=== PATIENT | male | born 1960 ===

== ENCOUNTER 2020-07-12 14:06 | Inpatient (IN) | payer MEDICARE ==
[~2020-07-12] VITALS: Ht 170.2 cm; Wt 72.5 kg
[2020-07-12 14:25] LABS: Calcium, Ionized (POC) 1.16 mmol/L (1.10-1.46); Chloride (POC) 100 mmol/L (98-108); Glucose (ISTAT POC) 162 mg/dL (70-99); Hemoglobin (POC) 18.4 g/dL (13.5-17.5); Potassium (POC) 4.5 mmol/L (3.5-5.5); Sodium (POC) 134 mmol/L (135-148); Total CO2 (POC) 22 mmol/L (21-32)
[2020-07-12 14:29] LABS: Hematocrit 52.2 % (37.0-53.0); Hemoglobin 17.4 g/dL (13.5-17.5); Mean Corpuscular HGB 31.4 pg (26.0-34.0); Mean Corpuscular HGB Conc 33.3 g/dL (31.5-36.5); Mean Corpuscular Volume 94 fL (80-100); Mean Platelet Volume 10.5 fL (9.1-12.4); Platelet Count 281 K/mm3 (150-400); RDW Coefficient Variation 13.2 % (11.7-14.2); RDW Standard Deviation 45.2 fL (35.1-46.3); Red Blood Cell Count 5.54 M/mm3 (4.30-5.90); White Blood Cell Count 21.92 K/mm3 (4.00-11.30)
[2020-07-12 15:08] LABS: Alanine Aminotransfer (ALT/SGP 165 U/L (12-78); Albumin, Blood 3.2 g/dL (3.4-5.0); Albumin/Globulin Ratio 0.7 (0.8-1.8); Alk Phos 52 U/L (50-136); Anion Gap 11 mmol/L (6-16); Aspartate Aminotrans (AST/SGOT 902 U/L (12-37); Bilirubin, Total 1.3 mg/dL (0.1-1.0); Blood Urea Nitrogen 23 mg/dL (8-24); Bun/Creatinine Ratio 20.4 (12.0-20.0); CHOL/HDL RATIO 3.5; CO2, Blood 22 mmol/L (21-32); Calcium, Blood 9.3 mg/dL (8.5-10.1); Chloride, Blood 102 mmol/L (98-108); Cholesterol 179 mg/dL (50-200); Creatinine, Blood 1.13 mg/dL (0.60-1.20); Globulin, Blood 4.4 g/dL (2.2-4.0); Glomerular Filtration Rate >60 (60-); Glucose, Blood 151 mg/dL (70-99); HDL Cholesterol 51 mg/dL (>39); LDL/HDL RATIO 2.2; Low Density Lipoprotein Chol 111 mg/dL (0-110); Magnesium, Blood 1.8 mg/dL (1.6-2.4); Potassium, Blood 4.5 mmol/L (3.5-5.5); Sodium, Blood 135 mmol/L (136-145); Total Protein, Blood 7.6 g/dL (6.4-8.2); Triglycerides 84 mg/dL (30-160); Very Low Density Lipoprot Chol 16 mg/dL (6-32)
[2020-07-12 17:16] LABS: BASOPHILS ABSOLUTE AUTO 0.04 K/mm3 (0.00-0.23); BASOPHILS PERCENT AUTO 0 % (0-2); EOSINOPHILS PERCENT AUTO 0 % (0-6); Hematocrit 40.8 % (37.0-53.0); Hemoglobin 14.3 g/dL (13.5-17.5); IMMATURE GRAN ABSOLUTE AUTO 0.11 K/mm3 (0.00-0.10); IMMATURE GRAN PERCENT AUTO 1 % (0-1); LYMPHOCYTES ABSOLUTE AUTO 1.66 K/mm3 (0.84-5.20); LYMPHOCYTES PERCENT AUTO 8 % (21-46); MONOCYTES ABSOLUTE AUTO 2.03 K/mm3 (0.16-1.47); MONOCYTES PERCENT AUTO 10 % (4-13); Mean Corpuscular HGB 31.5 pg (26.0-34.0); Mean Corpuscular Volume 90 fL (80-100); Mean Platelet Volume 10.3 fL (9.1-12.4); NEUTROPHILS PERCENT AUTO 82 % (41-73); Platelet Count 223 K/mm3 (150-400); RDW Coefficient Variation 13.1 % (11.7-14.2); RDW Standard Deviation 42.9 fL (35.1-46.3); Red Blood Cell Count 4.54 M/mm3 (4.30-5.90); White Blood Cell Count 21.24 K/mm3 (4.00-11.30)
[2020-07-12 17:25] LABS: International Normalized Ratio 1.17; Prothrombin Time Results 12.4 Sec (9.7-11.5)
[2020-07-12 18:31] LABS: Alanine Aminotransfer (ALT/SGP 130 U/L (12-78); Albumin, Blood 2.4 g/dL (3.4-5.0); Albumin/Globulin Ratio 0.8 (0.8-1.8); Alk Phos 37 U/L (50-136); Anion Gap 7 mmol/L (6-16); Aspartate Aminotrans (AST/SGOT 828 U/L (12-37); Blood Urea Nitrogen 21 mg/dL (8-24); Bun/Creatinine Ratio 23.7 (12.0-20.0); CO2, Blood 20 mmol/L (21-32); Calcium, Blood 7.6 mg/dL (8.5-10.1); Chloride, Blood 106 mmol/L (98-108); Creatinine, Blood 0.89 mg/dL (0.60-1.20); Glomerular Filtration Rate >60 (60-); Glucose, Blood 126 mg/dL (70-99); Sodium, Blood 133 mmol/L (136-145); Total Protein, Blood 5.4 g/dL (6.4-8.2)
[2020-07-12 18:32] LABS: Troponin I >200.000 ng/mL (0.000-0.040)
--- NOTE | 2020-07-12 18:35 | NUR ---
ASSUMED CARE RECEIVED FROM LIBRARY HISTORIAN VIA BED. PT IS AWAKE AND ALERT. ORIENTED TO ALL EXCEPT TO TIME OF DAY, BUT REORIENTS EASILY. COOPERATIVE WITH CARE. IMPELLA IN PLACE TO LEFT GROIN. PA CATHETER AND ARTERIAL LINE IN PLACE TO RIGHT FEMORAL. BLE ARE WARM, PULSES INTACT. CMS INTACT. NC 6L WITH SATS 95%. OCCASIONAL MOIST COUGH NOTED. PT CONTINUES WITH COMPAINT OF MID-SUBSTERNAL CHEST PAIN WITH DEEP BREATHING AND COUGHING. DENIES SOB/DYSPNEA AT THE MOMENT. C/O MILD NAUSEA. DOBUTAMINE INFUSING AT 7.5MCG/KG/MIN AND MILRINONE INFUSING AT 0.125MCG/KG/MIN PER ORDER.
--- NOTE | 2020-07-12 19:35 | NUR ---
CARDIAC CALCS/CARLOS CARLOS PLACED AT THIS TIME WITH IMMEDIATE RETURN OF DARK YELLOW URINE. CARDIAC CALCULATIONS DONE.
[2020-07-12 19:41] LABS: Source, Urine Catheter
[2020-07-12 19:46] LABS: Appearance, Urine Clear (Clear); Bilirubin, Urine Neg (Neg); Blood, Urine 5+ (Neg); Color, Urine Amber (P-Yellow); Glucose Qualitative, Urine Neg (Neg); Ketones, Urine 1+ (Neg); Leukocyte Esterase, Urine 1+ (Neg); Nitrite, Urine Neg (Neg); Protein, Urine 2+ (Neg); Specific Gravity, Urine 1.015 (1.003-1.022); Urobilinogen, Urine NORM (Normal)
[2020-07-12 19:52] LABS: Bacteria Mod /hpf; Squamous Epithelial Cells Not Seen /hpf (Few); White Blood Cells, Urine 0-2 /hpf (0-5)
[2020-07-12 20:11] LABS: Influenza A, PCR NEGATIVE (NEGATIVE); Influenza B, PCR NEGATIVE (NEGATIVE); Resp Syncytial Virus, PCR NEGATIVE (NEGATIVE); SARS-Cov-2 (COVID-19) PCR, MMC NEGATIVE (NEGATIVE)
--- NOTE | 2020-07-12 20:55 | NUR ---
MD VISIT/ FLUID BOLUS DR. AVILES IN TO SEE PT. PLAN IS TO GIVE 500CC IV FLUID BOLUS AT THIS TIME. GOAL IS TO KEEP CVP AT 10.
--- NOTE | 2020-07-12 23:45 | NUR ---
PTT/PURGE SOLUTION PTT IS 41.0 AT THIS TIME. IMPELLA PURGE SOLUTION CHANGED TO D5W WITH HEPARIN 50UNITS/ML PER ORDER.
[2020-07-13] MEDS ORDERED: BENADRYL25 M1 PO (00:39)
[2020-07-13] MEDS ORDERED: IBUP200 (00:39)
--- NOTE | 2020-07-13 02:36 | NUR ---
PTT LAST PTT WAS 46.6 (GOAL 50-70). DISCUSSED WITH INOCENCIA BOOKER, AND WILL CONTINUE TO MONITOR AT THIS TIME.
--- NOTE | 2020-07-13 03:41 | NUR ---
URINE OUTPUT DR. AVILES NOTIFIED OF DECREASE IN URINE OUTPUT TO <30CC/HR.
[2020-07-13 03:53] LABS: BASOPHILS ABSOLUTE AUTO 0.04 K/mm3 (0.00-0.23); BASOPHILS PERCENT AUTO 0 % (0-2); Hematocrit 37.5 % (37.0-53.0); LYMPHOCYTES ABSOLUTE AUTO 2.15 K/mm3 (0.84-5.20); LYMPHOCYTES PERCENT AUTO 12 % (21-46); MONOCYTES ABSOLUTE AUTO 2.09 K/mm3 (0.16-1.47); MONOCYTES PERCENT AUTO 12 % (4-13); Mean Corpuscular HGB 31.1 pg (26.0-34.0); Mean Corpuscular HGB Conc 34.7 g/dL (31.5-36.5); Mean Corpuscular Volume 90 fL (80-100); Mean Platelet Volume 10.2 fL (9.1-12.4); Platelet Count 166 K/mm3 (150-400); RDW Coefficient Variation 13.1 % (11.7-14.2); RDW Standard Deviation 42.8 fL (35.1-46.3); Red Blood Cell Count 4.18 M/mm3 (4.30-5.90); White Blood Cell Count 17.69 K/mm3 (4.00-11.30)
[2020-07-13 03:54] LABS: EOSINOPHILS PERCENT AUTO 0 % (0-6); IMMATURE GRAN ABSOLUTE AUTO 0.09 K/mm3 (0.00-0.10); IMMATURE GRAN PERCENT AUTO 1 % (0-1); NEUTROPHILS ABSOLUTE AUTO 13.32 K/mm3 (1.96-9.15); NEUTROPHILS PERCENT AUTO 75 % (41-73)
[2020-07-13 04:06] LABS: Anion Gap 9 mmol/L (6-16); Blood Urea Nitrogen 24 mg/dL (8-24); Bun/Creatinine Ratio 24.3 (12.0-20.0); CO2, Blood 18 mmol/L (21-32); Calcium, Blood 7.8 mg/dL (8.5-10.1); Chloride, Blood 110 mmol/L (98-108); Creatinine, Blood 0.99 mg/dL (0.60-1.20); Glomerular Filtration Rate >60 (60-); Glucose, Blood 140 mg/dL (70-99); Potassium, Blood 4.5 mmol/L (3.5-5.5); Sodium, Blood 137 mmol/L (136-145)
--- NOTE | 2020-07-13 06:00 | NUR ---
VTACH AT 0329, PT WENT INTO VTACH, RATE 200s. SBP 70s. PT DENIED C/O DYSPNEA, NAUSEA, OR CHEST PAIN AT THIS TIME. AT 034, IMPELLA ALARMED SUCTION AND FLOW DECREASED TO P6. DR. AVILES NOTIFIED AT 034 OF CONTINUED V-TACH, RATE 180-200s, PT SYMPTOMATIC WITH DIAPHORESIS, SOB, AND NAUSEA, AND OF DECREASE IN URINE OUTPUT. NEW ORDERS RECEIVED FOR AMIODARONE BOLUS AND AMIODARONE GTT. DR. AVILES CALLED AGAIN AT 041 D/T CONTINUED VTACH, RATE 180s-200s. NEW ORDER GIVEN FOR CARDIOVERSION. AT 0435, PT MEDICATED WITH VERSED 2MG AND FENTANYL 25MCG IV. AT 0437, PT WAS SHOCKED WITH 100J WITH IMMEDIATE CONVERSION TO ST, RATE 100-110. BP REMAINED LOW. DR. AVILES CALLED AGAIN AT 0503 TO REPORT CONTINUED HYPOTENSION, SBP 60S-70s, AND CONTINUED DECREASE IN URINE OUTPUT. NEW ORDER RECEIVED TO INCREASE DOBUTAMINE TO 7.5MCG/KG/MIN. MILRINONE CONTINUES AT 0.25MCG/KG/MIN PER ORDER.
--- NOTE | 2020-07-13 07:30 | NUR ---
Receieved report from Enedina CONTRERAS. Patient awake in bed and able to communicate his needs. He is on 6L O2 via NC and sats >90%. He has Impella ctaheter in left groin and marked at 95 for lengthrand securd hub. Site is re-inforced with 4x4 and has some oozing of blood. He also has [place] cathin right groin and venous access infusing Dobutimine at 7.5 mcg/kg/min and milrinone at 0.25 mcg/kg/min. He has 18ga IV in left AC infusing Amiodarone at 1mg/min. He also has 18ga RAC IV flushed and SL'd. He has 16Fr temp jacobson draing asndra cord urine to gravity approx. 30ml/hr and temp 100.0. He is supine r/t procedure and adjust hips only for comfort.
--- NOTE | 2020-07-13 09:35 | NUR ---
Patient went to [facility] assistant to work on opening RCA att 0911. Dr Alexander by to assess andi alejo.
--- NOTE | 2020-07-13 11:45 | NUR ---
Patient arrived back [facility]. Applied lines back in place and stablized patient. Dobutimine 7.5 mcg/kg/min, 0.25 mcg/kg/min of Milrinone, Amiodarone at 1 mg/min, ns TKO. Both groin sits redressed in laborer [employer] and are WNL's. Patient still remains mostly orientd and able to communicate his needs. See Impella documentation
--- NOTE | 2020-07-13 13:25 | NUR ---
Echocardiogram completed.
--- NOTE | 2020-07-13 13:30 | NUR ---
Dr Alexander by to see patient and ECHO being done. No changes to impella. See Impella docummntation.
--- NOTE | 2020-07-13 15:30 | NUR ---
Finished second 250 bolus with little success. Increased Dobutamine to 9 mcg/kg/min with little success. Systolic from art line 70-90's. Patient asymptomatic and more alert watching TV. He continues to ooz blood from [facility] and reinforced. Called Dr Alexander and he came by and we decide to stop Precedex. Amiodarone infusing 0.5 mg/min and he wants to continue for now. Milrinone continues at 0.25 mcg/kg/min.
--- NOTE | 2020-07-13 19:00 | NUR ---
ASSUMED CARE ASSUMED CARE OF PATIENT. AWAKE AND ALERT. ORIENTED AND COOPERATIVE WITH CARE. IMPELLA REMAINS IN PLACE TO LEFT FEMORAL ARTERY- SEE IMPELLA FLOW SHEET. SITE IS SOFT WITH SMALL AMOUNT OF SANGUINOUS DRAINAGE NOTED. PA CATHETER TO RIGHT FEMORAL VEIN AND ARTERIAL LINE TO RIGHT FEMORAL ARTERY. SITE IS SOFT AND WITH SMALL AMOUNT OF SANGUINOUS DRAINAGE NOTED. MONITOR SHOWS ST, RATE 100-110. CARLOS PATENT AND DRAINING YELLOW URINE. BILATERAL LOWER EXTREMITY DP PULSES ARE STRONG AND FEET ARE WARM. DOBUTAMINE INFUSING AT 10MCG/KG/MIN. MILRINONE INFUSING AT 0.25MCG/KG/MIN. AMIODARONE INFUSING AT 0.5MG/MIN. SEE SHIFT ASSESSMENT FOR FULL ASSESSMENT.
--- NOTE | 2020-07-13 19:26 | NUR ---
Patient continues to have low systolic and dobutamine at 10 mcg/kg/min with systolic 70-90's and Milrinone at 0.25 mcg/kg/min. He is resting quietly.. Precedex remains off. No changes to impella. Foly out put 850 ml sandra color.Stripped dressingg from [place] and redressed whol site and cath remains at marked site.
--- NOTE | 2020-07-14 01:02 | NUR ---
RESTLESSNESS/ANXIETY PT WITH INCREASED RESTLESSNESS AND ANXIETY NOTED. MEDICATED WITH FENTANYL 50MCG IV SEVERAL TIMES FOR COMFORT, BUT PT IS UNABLE TO REST. DR. AVILES NOTIFIED OF PT COMPLAINT AND OF RECENT PA/IMPELLA NUMBERS. NEW ORDER RECEIVED FOR ATIVAN FOR ANXIETY.
[2020-07-14 03:42] LABS: BASOPHILS ABSOLUTE AUTO 0.03 K/mm3 (0.00-0.23); BASOPHILS PERCENT AUTO 0 % (0-2); EOSINOPHILS ABSOLUTE AUTO 0.04 K/mm3 (0.00-0.68); EOSINOPHILS PERCENT AUTO 0 % (0-6); Hematocrit 28.3 % (37.0-53.0); Hemoglobin 10.2 g/dL (13.5-17.5); IMMATURE GRAN ABSOLUTE AUTO 0.15 K/mm3 (0.00-0.10); IMMATURE GRAN PERCENT AUTO 1 % (0-1); LYMPHOCYTES ABSOLUTE AUTO 1.85 K/mm3 (0.84-5.20); LYMPHOCYTES PERCENT AUTO 12 % (21-46); MONOCYTES ABSOLUTE AUTO 1.07 K/mm3 (0.16-1.47); MONOCYTES PERCENT AUTO 7 % (4-13); Mean Corpuscular HGB 31.7 pg (26.0-34.0); Mean Corpuscular Volume 88 fL (80-100); Mean Platelet Volume 10.4 fL (9.1-12.4); NEUTROPHILS ABSOLUTE AUTO 12.86 K/mm3 (1.96-9.15); NEUTROPHILS PERCENT AUTO 80 % (41-73); Platelet Count 118 K/mm3 (150-400); RDW Coefficient Variation 12.8 % (11.7-14.2); RDW Standard Deviation 40.9 fL (35.1-46.3); Red Blood Cell Count 3.22 M/mm3 (4.30-5.90)
[2020-07-14 03:55] LABS: Anion Gap 10 mmol/L (6-16); Blood Urea Nitrogen 20 mg/dL (8-24); Bun/Creatinine Ratio 23.8 (12.0-20.0); CO2, Blood 20 mmol/L (21-32); Calcium, Blood 7.4 mg/dL (8.5-10.1); Chloride, Blood 104 mmol/L (98-108); Creatinine, Blood 0.84 mg/dL (0.60-1.20); Glomerular Filtration Rate >60 (60-); Glucose, Blood 138 mg/dL (70-99); Potassium, Blood 3.5 mmol/L (3.5-5.5); Sodium, Blood 134 mmol/L (136-145)
--- NOTE | 2020-07-14 06:28 | NUR ---
SHIFT SUMMARY NO ACUTE CHANGES DURING SHIFT. IMPELLA REMAINS IN PLACE TO LEFT FEMORAL ARTERY- SEE IMPELLA FLOWSHEET. SITE IS SOFT, DRSG WITH SMALL AMOUNT OF OLD SEROUS DRAINAGE. PA CATHETER AND ARTERIAL LINE REMAINS IN PLACE TO RIGHT GROIN. MONITOR SHOWED ST T/O NOC, RATE 100-110s. MAP >60 T/O SHIFT. DOBUTAMINE CONTINUES AT 10MCG/KG/MIN. MILRINONE CONTINUES AT 0.25MCG/KG/MIN. AMIODARON OFF AT 0400. REMAINED FEBRILE. INTERMITTENT NAUSEA- MEDICATED WITH ZOFRAN 4MG IV X 1. POOR APPETITE, BUT IS ABLE TO DRINK GATORADE. CARLOS PATENT AND DRAINING YELLOW URINE. PT HAS BEEN ANXIOUS AND RESTLESS T/O MOST OF SHIFT. MEDICATED WITH ATIVAN 0.5MG IV X 1 DOSE, BUT PT SEEMED MORE AGITATED AFTER. ALSO MEDICATED WITH FENTANYL 50 MCG IV Q 2-3H FOR C/O BACK PAIN AND GENERAL DISCOMFORT. TYLENOL GIVEN X 1 DOSE FOR INCREASED TEMP. PT REFUSED OFFER OF ADDITIONAL DOSE. WILL REPORT TO ONCOMING RN WHEN AVAILABLE.
--- NOTE | 2020-07-14 07:30 | NUR ---
PT A&O X4. PT APPEARS VERY ANXIOUS.ATTEMPTING TO SIT UP IN BED AND MOVING LEGS. PT REPORTS 9/10 BACK PAIN. SKIN PALE, ESPINOZA, AND DIAPHORETIC. TEMP 101.1. MED WITH FENTANYL 50 MCG IVP X1 AND ATIVAN 1 MG IVP X 1. ECG SHOWS ST WITH RATE 100-110'S. IMPELLA IN PLACE TO LEFT FEMORAL @ 95 CM. SWAN TO RIGHT FEMORAL-ALL LINES ZEROED AND HEMODYNAMIC PARAMETERS DONE. INPUT NEW CARDIAC OUTPUT OF 5.0-SEE IMPELLA FLOWSHEET. MAP TRENDING 70'S. MILRINONE @ 0.25 MCG/KG/MIN AND DOBUTREX 10 MCG/KG/MIN. URINE OUTPUT AVERAGING 40 CC/HR. LUNGS DIMINSHED IN BASES R>L.OCCASIONAL MOIST COUGH NOTED. PT EDUCATED ON USE MAN YANKEUR SUCTION AND IS ABLE TO DEMONSTRATE UNDERSTANDING. SATS>90% ON 3 LITERS NASAL CANULA. MED WITH ZOFRAN FOR NAUSEA AND THEN PT ABLE TO TAKE ROUTINE AM MEDS WITH SIP OF WATER WITHOUT DIFFICULTY. ANTICIPATE ECHO LATER THIS AM TO RE-ASSESS IMPELLA PLACEMENT. NEXT PTT@0900.WILL RECHECK LACTIC ACID AT THAT TIME WELL.
--- NOTE | 2020-07-14 08:56 | NUR ---
MED WITH TYLENOL PO FOR TEMP 101.3.
--- NOTE | 2020-07-14 09:14 | NUR ---
PTT AND LACTIC ACID DRAWN AND SENT TO LAB.
--- NOTE | 2020-07-14 09:49 | NUR ---
DR. AVILES HERE TO SEE PT.UPDATED TO CURRENT STATUS AND HEMODYNAMICS. MD AWARE OF INCREASED AGITATION, INCREASED WOB, AND FEBRILE PROCESS. UPDATED MD TO CURRENT LACTIC ACID 2.7-ORDERS GIVEN. DR. PEACE AND DR. SCHULTE HAVE BEEN COSULTED. CXR, ABG DONE AND RESULTS REVIEWED WITH DR. PEACE.
[2020-07-14 10:26] LABS: Source, Urine Catheter
[2020-07-14 10:38] LABS: PCO2 Arterial 29.5 mmHg (35-45); pH Blood Arterial 7.48 (7.35-7.45)
[2020-07-14 11:16] LABS: Appearance, Urine Hazy (Clear); Blood, Urine 3+ (Neg); Color, Urine Yellow (P-Yellow); Glucose Qualitative, Urine Neg (Neg); Ketones, Urine 1+ (Neg); Leukocyte Esterase, Urine 2+ (Neg); Nitrite, Urine Neg (Neg); Protein, Urine 2+ (Neg); Specific Gravity, Urine 1.015 (1.003-1.022); Urobilinogen, Urine 3+ (Normal)
--- NOTE | 2020-07-14 11:21 | NUR ---
PT CONTINUES TO LABOR WITH BREATHING. LUNGS COARSE AND WZ TO THE LEFT. AUDIBLY WZ AT TIMES RR 24-30. DR. PEACE AT BEDSIDE EVALUATING PT. CADE ORDERED AND DIANE IYER NOTIFIED.
[2020-07-14 12:09] LABS: Bilirubin, Urine 1+ (Neg)
[2020-07-14 12:12] LABS: Bacteria Few /hpf; Red Blood Cells, Urine 0-2 /hpf (0-2); Squamous Epithelial Cells Rare /hpf (Few)
--- NOTE | 2020-07-14 12:20 | NUR ---
PT AGITATED, HALLUCINATING, SITTING UP IN BED, BENDING KNEES. UNABLE TO FOLLOW COMMANDS. LEFT GROIN NOW BRUISED PT SITTING UP FREQUENTLY-DR. PEACE AWARE. PT LABORING TO BREATH-RR 30, USING ACCESSORY MUSCLES TO BREATH. SATS>90% ON 5 LITERS NASAL CANULA. ANTIBIOTICS HAVE BEEN INITIATED. PT MED WITH ZYPREXA 5 MG IM X 1 WITH LITTLE EFFECT ON AGITATION. VERBALIZED TO DR. PEACE CONCERN FOR ETOH WITHDRAWL. PT ATTEMPTING TO GET OOB-PRECEDEX DRIP INITITED AND NEEDED TO BE TITRATED UP TO 0.7 MCG/KG/MIN. DR. AVILES HAS BEEN CONTACTED REQUESTING THAT HE RETURN TO BEDSIDE. CURRENT HEMODYNAMICS OBTAINED AND DOCUMENTED. DOBUTREX @ 5 MCG/KG/MIN AND MILRINONE @ 0.25 MCG/KG/MIN. ASHA MCCONNELL-ROGER 2.5 SEE FLOWSHEET. MIXED VENOUS BLOOD GAS SENT, PTT DRAWN, AND LACTIC ACID SENT.
[2020-07-14 12:43] LABS: Base Excess Venous -2.7 mmol/L; Bicarbonate Venous 22.3 mmol/L (24.0-30.0); PCO2 Venous 34.8 mmHg (38-42); PO2 Venous 47.2 mmHg (38-42); pH Blood Venous 7.41 (7.34-7.37)
--- NOTE | 2020-07-14 13:02 | NUR ---
Echocardiogram completed.
--- NOTE | 2020-07-14 14:00 | NUR ---
PT CONTINUES TO BE CONFUSED AND AGITATED. PT MUMBLING INCOHERENTLY. FOLLOWS COMMANDS AT TIMES-GANNON. PRECEDEX DRIP @ 0.4 MCG/KG/MIN AND PT MED WITH FENTANYL 50 MCG IVP X 1 FOR PAIN/SEDATION ADJUNCT. LOWER EXTREMITIES RESTRAINED TO PREVENT BENDING OF THE KNEE, BUT PT STILL RAISES HIS HEAD UP OFF OF THE PILLOW AND AT TIMES HAS TRIED TO SIT COMPLETELY UP. LEFT GROIN AREA WITH NEW BRUISING THAT WAS NOT NOTED ON AM ASSESSMENT-AREA DEMARCATED. DR. PEACE AWARE.
--- NOTE | 2020-07-14 15:18 | NUR ---
PT RESTING INTERMITTENTLY WHEN NOT DISTURBED WITH PRECEDEX @ 0.4 MCG/KG/MIN-FENTANYL PRN BACK PAIN/SEDATION ADJUNCT. PT AWAKENS AT TIMES SPONTANEOUSLY AND BEGINS TO MOVE HIS LEGS AND LIFTS HIS HEAD UP OFF OF THE PILLOW. AUDIBLY WZ-LUNGS COARSE THROUGH OUT DIMINISHED R>L. SATS >90% ON 5 LITERS NASAL CANULA. DUO NEB EVERY FOUR HOURS PRN.
[2020-07-14 15:26] LABS: U Amphetamine Screen Not Detected; U Barbituate Screen Not Detected; U Benzodiazapine Screen DETECTED; U Buprenorphine Screen Not Detected; U Cannabinoids Screen DETECTED; U Cocaine Screen Not Detected; U Methadone Screen Not Detected; U Methamphetamine Screen Not Detected; U Opiates Screen Not Detected; U Oxycodone Screen Not Detected; U Phencyclidine Screen Not Detected; U Propoxyphene Screen Not Detected
[2020-07-14 16:11] LABS: PCO2 Arterial 32.5 mmHg (35-45); PO2 Arterial 73.1 mmHg (80-100); pH Blood Arterial 7.45 (7.35-7.45)
--- NOTE | 2020-07-14 17:00 | NUR ---
STEPHANIEWA 25. PT REPORTS THAT HE DRINKS A SIX PACK OF BEER A DAY. DR. PEACE AWARE-ORDER GIVEN FOR VALIUM 10 MG IVP PRIOR TO BATH AND POSITION CHANGE. CONTINUE TO TITRATE PRECEDEX.
--- NOTE | 2020-07-14 17:18 | NUR ---
PT PREMED WITH DIAZEPAM 10 MG IVP X 1, THEN COOL BED BATH DONE (TEMP 102.2), LINEN CHANGE COMPLETED. PT REMAINED AGITATED AND CONFUSED. PT BENDING HIS KNEES AND LIFTING HEAD OFF OF THE BED. INCREASED PRECEDEX TO 0.7 MCG/KG/MIN AND MED WITH FENTANYL 50 MG IVP X1 FOR BACK PAIN AND SEDATION ADJUNCT. PT STILL LABORING TO BREATHE. RR 24-32.USING ACCESSORY MUSCLES FOR RESP. SATS>90% ON 5 LITERS NASAL CANULA. UNABLE TO OBTAIN SPUTUM SPECIMEN. NPO DUE TO RESPIRATORY DISTRESS-ORAL MUCOSA DRY.FREQUENT ORAL CARE DONE.IMPELLA CONTINUES SEE FLOWSHEET. LEFT GROIN BRUISING HAS NOT EXTENDED BEYOND THE DEMARCATED AREA.
--- NOTE | 2020-07-14 18:00 | NUR ---
AND DR. AVILES UPDATED TO CIWA, CURRENT VS, AND STATUS. NOTIFIED OF INCREASED WOB AND TEMP 102.2. PT AUDIBLY WZ-DUO NEB GIVEN. COOLING MEASURES IN PLACE-TYLENOL SUPPOSITORY GIVEN.
--- NOTE | 2020-07-14 19:00 | NUR ---
ASSUMED CARE ASSUMED CARE OF PATIENT. SEDATED WITH PRECEDEX AT 1.4MCG/KG/HR BUT PT IS STILL RESTLESS AND AGITATED. ATEMPTING TO SIT UP IN BED AND PULLING AT TUBES/LINES/LINENS. CALMS DOWN TO VOICE/REASSURANCE, BUT QUICKLY BECOMES AGITATED AGAIN. MUMBLES INCOHERENTLY. OCCASIONALLY FOLLOWS SIMPLE COMMANDS (LAYS BACK DOWN ON BED WHEN INSTRUCTED.) BP 78/59 (65) VIA RIGHT FEMORAL ARTERIAL LINE. MONITOR SHOWS ST, RATE 110s. TEMP 101.1F VIA PA CATHETER. O2 5L NC WITH SATS MID-20s TO 30s. INTERMITTENT EPISODES OF TACHYPNEA AND INCREASED USE OF ACCESSORY MUSCLES- INCREASED WITH AGITATION. IMPELLA TO LEFT FEMORAL ARTERY- PLACEMENT 95CM. SEE IMPELLA FLOWSHEET. PA CATHETER TO RIGHT FEMORAL VEIN- PLACEMENT APPROXIMATELY 73CM. NPO. CARLOS PATENT AND DRAINING YELLOW URINE. SOFT ANKLE RESTRAINTS IN PLACE BILATERALLY. SEE SHIFT ASSESSMENT FOR FULL ASSESSMENT.
[2020-07-14 19:48] LABS: PCO2 Arterial 35.5 mmHg (35-45); PO2 Arterial 63.5 mmHg (80-100); pH Blood Arterial 7.42 (7.35-7.45)
[2020-07-14 22:52] LABS: PCO2 Arterial 33.3 mmHg (35-45); PO2 Arterial 84.4 mmHg (80-100); pH Blood Arterial 7.45 (7.35-7.45)
--- NOTE | 2020-07-15 01:45 | NUR ---
DECREASED SATS PT WITH INCREASED AGITATION AND RESTLESSNESS. ATTEMPTING TO SIT UP IN BED. PRECEDEX CONTINUES AT 1.4MCG/KG/HR. ALSO MEDICATED WITH ATIVAN AND FENTANYL ADJUNCT TO SEDATION. RESPIRATIONS ARE MORE TACHYPNEIC AND PT IS USING MORE OF HIS ACCESSORY MUSCLES. O2 AT 6LNC AND SATS ARE 88%. CHANGED TO HFNC AT THIS TIME.
--- NOTE | 2020-07-15 02:15 | NUR ---
DECREASED SATS O2 SATS ARE 88-89% WITH HFNC AT 15L. CHANGED TO AIRVO AT THIS TIME- 55/60% FIO2 TO MAINTAIN SATS >90%.
--- NOTE | 2020-07-15 03:15 | NUR ---
CALL TO MD DR. DAVID NOTIFIED OF CHANGE TO AIRVO TO MAINTAIN SATS >90%. UPDATED ALSO ON CURRENT SEDATION MEDS. WILL CHECK ABG AT 0600 AND CONTINUE WITH CURRENT REGIMEN OF MEDS.
[2020-07-15 04:51] LABS: BASOPHILS ABSOLUTE AUTO 0.03 K/mm3 (0.00-0.23); BASOPHILS PERCENT AUTO 0 % (0-2); EOSINOPHILS ABSOLUTE AUTO 0.08 K/mm3 (0.00-0.68); EOSINOPHILS PERCENT AUTO 1 % (0-6); Hematocrit 23.7 % (37.0-53.0); Hemoglobin 8.4 g/dL (13.5-17.5); IMMATURE GRAN ABSOLUTE AUTO 0.11 K/mm3 (0.00-0.10); IMMATURE GRAN PERCENT AUTO 1 % (0-1); LYMPHOCYTES ABSOLUTE AUTO 1.24 K/mm3 (0.84-5.20); LYMPHOCYTES PERCENT AUTO 11 % (21-46); MONOCYTES ABSOLUTE AUTO 0.81 K/mm3 (0.16-1.47); MONOCYTES PERCENT AUTO 7 % (4-13); Mean Corpuscular HGB 31.5 pg (26.0-34.0); Mean Corpuscular HGB Conc 35.4 g/dL (31.5-36.5); Mean Corpuscular Volume 89 fL (80-100); Mean Platelet Volume 10.5 fL (9.1-12.4); NEUTROPHILS ABSOLUTE AUTO 9.18 K/mm3 (1.96-9.15); NEUTROPHILS PERCENT AUTO 80 % (41-73); Platelet Count 100 K/mm3 (150-400); RDW Coefficient Variation 12.9 % (11.7-14.2); RDW Standard Deviation 41.1 fL (35.1-46.3); Red Blood Cell Count 2.67 M/mm3 (4.30-5.90); White Blood Cell Count 11.45 K/mm3 (4.00-11.30)
[2020-07-15 05:09] LABS: Alanine Aminotransfer (ALT/SGP 86 U/L (12-78); Albumin, Blood 1.8 g/dL (3.4-5.0); Albumin/Globulin Ratio 0.6 (0.8-1.8); Alk Phos 42 U/L (50-136); Anion Gap 5 mmol/L (6-16); Aspartate Aminotrans (AST/SGOT 193 U/L (12-37); Bilirubin, Total 2.3 mg/dL (0.1-1.0); Blood Urea Nitrogen 13 mg/dL (8-24); Bun/Creatinine Ratio 15.3 (12.0-20.0); CO2, Blood 24 mmol/L (21-32); Calcium, Blood 7.2 mg/dL (8.5-10.1); Chloride, Blood 106 mmol/L (98-108); Creatinine, Blood 0.85 mg/dL (0.60-1.20); Globulin, Blood 3.1 g/dL (2.2-4.0); Glomerular Filtration Rate >60 (60-); Glucose, Blood 119 mg/dL (70-99); Magnesium, Blood 1.8 mg/dL (1.6-2.4); Phosphorus, Blood 1.7 mg/dL (2.5-4.9); Potassium, Blood 3.8 mmol/L (3.5-5.5); Sodium, Blood 135 mmol/L (136-145); Total Protein, Blood 4.9 g/dL (6.4-8.2)
[2020-07-15 05:59] LABS: PCO2 Arterial 33.9 mmHg (35-45); PO2 Arterial 75.3 mmHg (80-100); pH Blood Arterial 7.44 (7.35-7.45)
--- NOTE | 2020-07-15 06:38 | NUR ---
SHIFT SUMMARY SEDATED WITH PRECEDEX 1.4MCG/KG/HR AT THIS TIME. ATTEMPTS TO TITRATE DOWN WERE UNSUCCESSFUL. PT CONTINUES TO HAVE PERIODS OF INCREASED AGITATION AND RESTLESSNESS. ATTEMPTS TO SIT UP IN THE BED. ORIENTED TO SELF ONLY WHEN AWAKE. DOESN'T FOLLOW COMMANDS, BUT WILL RELAX BACK IN BED WHEN INSTRUCTED. MEDICATED WITH ATIVAN AND FENTANYL AN ADJUNCT TO SEDATION. BILATERAL UPPER AND LOWER EXTREMITIES IN PLACE TO PROTECT IMPELLA AND OTHER VITAL LINES. IMPELLA REMAINS IN PLACE TO LEFT FEMORAL. SITE IS SOFT, BRUISING NOTED AND MARKED. PA CATH AND ARTERIAL LINE TO RIGHT GROIN. DOBUTAMINE CONTINUES @ 5MCG/KG/MIN AND MILRINONE AT 0.25MCG/KG/MIN. MAP >60 T/O SHIFT. HR 90s-110s, NOW 99. TMAX 102.1F. NOW ON AIRVO TO MAINTAIN SATS >90%. WILL REPORT TO ONCOMING RN KATHN AVAILABLE. CONTINUES TO BE TACHYPNEIC AND SLIGHTLY LABORED BREATHING. CARLOS PATENT AND WITH GOOD URINE OUTPUT.
--- NOTE | 2020-07-15 07:30 | NUR ---
ASSUMED CARE BEDSIDE REPORT FROM REJI CONTRERAS. ALL EQUIPMENT AND DRIPS VERIFIED sarah MENDOZA. PT HAS IMPELLA DEVICE TO LEFT FEMORAL. SETTINGS P6, SEE IMPELLA FLOW SHEET. DRESSING C/D/I. ECCHYMOSIS NOTED AND MARKED TO LEFT HIP. PA CATH TO RIGHT FEMORAL, MARKINGS AT 80 CM, DRESSING C/D/I. ART LINE TO RIGHT GROIN. ALL LINES FLUSHED AND ZEROED. DOBUTAMINE GTT 2.5 MCG/KG/MIN, MILORONE GTT 0.25 MCG/KG/MIN. MAP >60, GOAL 60-80. HR 100'S, ST. PT ON AIRVO, 55L/55%. LUNGS COARSE THROUGHOUT, WET COUGH. PT SEDATED c PRECEDEX 1.4 MCG/KG/HR. PT ROUSES TO VERBAL STIMULI. DOES NOT FOLLOW DIRECTIONS. RESTRAINTS IN PLACE FOR EQUIPMENT SAFETY. PT PALE, COOL. RADIAL AND DORSAL PEDAL PULSES PALPABLE. CARLOS PATENT, DRAINING CLEAR YELLOW URINE TO GRAVITY. ASHA PRO REP AT BEDSIDE. PLAN TO TREND CO q4. SEE FLOW SHEET. WILL CONTINUE TO MONITOR.
--- NOTE | 2020-07-15 11:18 | NUR ---
PT CONTINUES TO COUGH, DARK RED EMESIS THROUGH NGT. CONCERN FOR ASPIRATION. AGITATED. DR HARDY AT BEDSIDE. PROTONIX BOLUS AND GTT ORDERED. PREPARING FOR INTUBATION. 8.0 ETT, 25 AT LIP. VENT SETTINGS AC 14/380/10/50% AT THIS TIME. PROPOFOL GTT AND PRECEDEX FOR SEDATION. CO 4.0, MAP >60, PAP 1.0. IMPELLA CONTINUES AT P6.
[2020-07-15 11:51] LABS: PCO2 Arterial 27.8 mmHg (35-45); PO2 Arterial 104 mmHg (80-100); pH Blood Arterial 7.49 (7.35-7.45)
--- NOTE | 2020-07-15 14:43 | NUR ---
Pt sedated on impella and ventilator, No information on pt or family. Searched pt clothing and found a wallet. He has medicare care and a ID card and his [facility] card. Contacted [facility] to see if we could get contact inormation. Called his brother his roomate states he moved away called [facility] office and no information. Contacted [place] police department as that was his last known address. They porvided me with a phone number will try to contact family. Plan at this time is transport to [facility] for impella nad chf care.
--- NOTE | 2020-07-15 16:15 | NUR ---
PT TRANSFERRED TO [facility]. REPORT CALLED TO NURSE IN CICU. REACH AT BEDSIDE. REPORT GIVEN. ATIVAN, AND NEW GTT SENT c REACH. VERIFIED sarah YOUNG RN. PT TRANSFERRED ON VENT, SEDATED, IMPELLA, SWAN AND ART LINE FUNCTIONAL AND IN PLACE. DOBUTAMINE AND MILIRONE GTT CONTINUE.
== END 2020-07-15 16:15 | disposition short-term general hospital (02) | DRG 215 ==
LOC: ER 14:06 → ICUW 14:15
PROVIDERS: Emergency Medicine; Internal Medicine Critical Care Medicine; Internal Medicine Infectious Disease; ADMIT Internal Medicine Cardiovascular Disease
PROC: 02HA3RZ Insertion of Short-term External Heart Assist System into Heart, Percutaneous Approach (ICD-10-PCS; principal; 2020-07-12)
PROC: 5A0221D Assistance with Cardiac Output using Impeller Pump, Continuous (ICD-10-PCS; 2020-07-12)
PROC: 02C03ZZ Extirpation of Matter from Coronary Artery, One Artery, Percutaneous Approach (ICD-10-PCS; 2020-07-12)
PROC: 02703EZ Dilation of Coronary Artery, One Artery with Two Intraluminal Devices, Percutaneous Approach (ICD-10-PCS; 2020-07-12)
PROC: 02703ZZ Dilation of Coronary Artery, One Artery, Percutaneous Approach (ICD-10-PCS; 2020-07-12)
PROC: B211YZZ Fluoroscopy of Multiple Coronary Arteries using Other Contrast (ICD-10-PCS; 2020-07-12)
PROC: 4A023N7 Measurement of Cardiac Sampling and Pressure, Left Heart, Percutaneous Approach (ICD-10-PCS; 2020-07-12)
PROC: B211YZZ Fluoroscopy of Multiple Coronary Arteries using Other Contrast (ICD-10-PCS; 2020-07-12)
PROC: 027034Z Dilation of Coronary Artery, One Artery with Drug-eluting Intraluminal Device, Percutaneous Approach (ICD-10-PCS; 2020-07-13)
PROC: 4A023N6 Measurement of Cardiac Sampling and Pressure, Right Heart, Percutaneous Approach (ICD-10-PCS; 2020-07-13)
PROC: B211YZZ Fluoroscopy of Multiple Coronary Arteries using Other Contrast (ICD-10-PCS; 2020-07-13)
PROC: 3E033XZ Introduction of Vasopressor into Peripheral Vein, Percutaneous Approach (ICD-10-PCS; 2020-07-13)
PROC: 0BH17EZ Insertion of Endotracheal Airway into Trachea, Via Natural or Artificial Opening (ICD-10-PCS; 2020-07-15)
DX: I21.19 ST elevation (STEMI) myocardial infarction involving other coronary artery of inferior wall (principal); R57.0 Cardiogenic shock; J18.9 Pneumonia, unspecified organism; J96.90 Respiratory failure, unspecified, unspecified whether with hypoxia or hypercapnia; K92.2 Gastrointestinal hemorrhage, unspecified; I10 Essential (primary) hypertension; F10.20 Alcohol dependence, uncomplicated; E78.5 Hyperlipidemia, unspecified; I11.0 Hypertensive heart disease with heart failure; I50.9 Heart failure, unspecified; I25.10 Atherosclerotic heart disease of native coronary artery without angina pectoris; I25.82 Chronic total occlusion of coronary artery
CPT/HCPCS: 0241U; 31500; 33990; 36415; 36430; 51703; 71045; 80047; 80048; 80053; 80061; 81001; 82271; 82803; 83605; 83690; 83735; 84100; 84484; 85014; 85025; 85027; 85347; 85610; 85730; 86850; 86900; 86901; 86923; 87040; 87086; 87449; 92953; 93005; 93010; 93306; 93308; 93321; 93456; 94002; 94640; 99152; 99153; 99285-25; A9270; C1725; C1751; C1757; C1760; C1769; C1874; C1887; C1894; C9113; C9600; C9606; G0480; J0153; J0282; J0692; J1250; J1644; J2060; J2250; J2260; J2405; J2704; J3010; J3360; J3370; J3411; J7030; J7040; J7050; J7060; P9016; Q9967